=== PATIENT | female | born 1985 | race Two or more races ===

== ENCOUNTER → 2018-03-29 | Emergency (ER) | payer OTHER ==
[~2018-03-29] VITALS: Ht 165.1 cm; Wt 60.3 kg
[~2018-03-29] MED LIST: ALKA-SELTZER125 MG PO; AMOXIL500 MG PO; MUCINEX100 MG/BOX PO; ORTHO EVRA1 PATCH.WK TD; PHENERGAN25 MG; PROGESTERONE100 MG
== END | disposition home or self-care (01) ==
LOC: ER 19:59
DX: O26.852 Spotting complicating pregnancy, second trimester (principal); R10.84 Generalized abdominal pain; K59.09 Other constipation; Z34.82 Encounter for supervision of other normal pregnancy, second trimester

== ENCOUNTER 2018-08-27 13:11 | Outpatient (CLI) | payer OTHER ==
[2018-08-27] MEDS ORDERED: PRENATAL 19 TA1 EACH PO (16:09)
[2018-08-27] MEDS ORDERED: NIFE60TA3 PO (16:10)
== END 2018-08-28 14:11 | disposition home or self-care (01) ==
LOC: OBS/DEL 13:11
DX: O26.893 Other specified pregnancy related conditions, third trimester (principal); R10.2 Pelvic and perineal pain; Z34.83 Encounter for supervision of other normal pregnancy, third trimester

== ENCOUNTER 2018-09-30 10:58 | Inpatient (IN) | payer OTHER ==
[~2018-09-30] VITALS: Ht 165.1 cm; Wt 3.6 kg
[~2018-09-30 10:58] MED LIST changes: +NIFE60TA3 PO; +PRENATAL 19 TA1 EACH PO
== END 2018-10-03 14:29 | disposition home or self-care (01) | DRG 788 ==
LOC: OB/GYN 10:58 → LDR 10:58 → OB/GYN 19:02
PROVIDERS: Obstetrics & Gynecology Obstetrics
PROC: 4A1HXCZ Monitoring of Products of Conception, Cardiac Rate, External Approach (ICD-10-PCS; 2018-09-30)
PROC: 10D00Z1 Extraction of Products of Conception, Low, Open Approach (ICD-10-PCS; principal; 2018-09-30 17:00)
DX: O62.1 Secondary uterine inertia (principal); Z3A.40 40 weeks gestation of pregnancy; Z37.0 Single live birth; Z22.330 Carrier of Group B streptococcus

== ENCOUNTER 2019-05-14 19:32 | Emergency (ER) | payer OTHER ==
[~2019-05-14] VITALS: Ht 165.1 cm; Wt 63.0 kg
== END 2019-05-14 23:25 | disposition home or self-care (01) ==
LOC: ER 19:32
DX: S80.02XA Contusion of left knee, initial encounter (principal); S39.82XA Other specified injuries of lower back, initial encounter; W18.09XA Striking against other object with subsequent fall, initial encounter; Y93.89 Activity, other specified; Y92.63 Factory as the place of occurrence of the external cause; Y99.8 Other external cause status

== ENCOUNTER 2019-07-06 15:53 | Outpatient (CLI) | payer OTHER | END 2019-07-06 16:01 | disposition home or self-care (01) | LOC: LAB 15:53 | DX: Z39.0 Encounter for care and examination of mother immediately after delivery (principal) ==

== ENCOUNTER 2019-07-09 08:08 | Outpatient (CLI) | payer OTHER | END 2019-07-09 08:27 | disposition home or self-care (01) | LOC: LAB 08:08 | DX: N96 Recurrent pregnancy loss (principal) ==

== ENCOUNTER 2019-09-15 12:49 | Emergency (ER) | payer OTHER ==
[~2019-09-15] VITALS: Ht 165.1 cm; Wt 64.0 kg
== END 2019-09-15 15:27 | disposition home or self-care (01) ==
LOC: ER 12:49
DX: O26.891 Other specified pregnancy related conditions, first trimester (principal); R10.2 Pelvic and perineal pain; F06.4 Anxiety disorder due to known physiological condition; Z34.81 Encounter for supervision of other normal pregnancy, first trimester

== ENCOUNTER 2020-01-07 16:08 | Outpatient (CLI) | payer OTHER ==
[2020-01-07] MEDS ORDERED: NIFEDIPINE10 MG PO (16:31)
== END 2020-01-08 11:20 | disposition home or self-care (01) ==
LOC: OBS/DEL 16:08
DX: O26.893 Other specified pregnancy related conditions, third trimester (principal); Z04.1 Encounter for examination and observation following transport accident; V49.88XA Car occupant (driver) (passenger) injured in other specified transport accidents, initial encounter; Y93.89 Activity, other specified; Y92.488 Other paved roadways as the place of occurrence of the external cause; Y99.8 Other external cause status

== ENCOUNTER 2020-02-08 16:13 | Outpatient (CLI) | payer OTHER ==
[~2020-02-08 16:13] MED LIST changes: +NIFEDIPINE10 MG PO
== END 2020-02-09 13:50 | disposition home or self-care (01) ==
LOC: OBS/DEL 16:13
DX: O60.03 Preterm labor without delivery, third trimester (principal)

== ENCOUNTER 2020-03-09 09:04 | Inpatient (IN) | payer OTHER ==
[~2020-03-09] VITALS: Ht 165.1 cm; Wt 3.2 kg
== END 2020-03-12 14:01 | disposition home or self-care (01) | DRG 785 ==
LOC: O/R 09:04 → LDR 09:04 → O/R 13:27 → SURG-SUITE 15:19
PROVIDERS: ADMIT Obstetrics & Gynecology Obstetrics
PROC: 0UL70ZZ Occlusion of Bilateral Fallopian Tubes, Open Approach (ICD-10-PCS; 2020-03-09)
PROC: 4A1HXCZ Monitoring of Products of Conception, Cardiac Rate, External Approach (ICD-10-PCS; 2020-03-09)
PROC: 10D00Z1 Extraction of Products of Conception, Low, Open Approach (ICD-10-PCS; principal; 2020-03-09 13:00)
DX: O82 Encounter for cesarean delivery without indication (principal); Z3A.38 38 weeks gestation of pregnancy; Z37.0 Single live birth; Z30.2 Encounter for sterilization